=== PATIENT | female | born 1970 | race Caucasian/White ===

== ENCOUNTER 2021-03-20 02:26 | Emergency (ER) | payer MEDICAID ==
[~2021-03-20] VITALS: Ht 154.9 cm; Wt 108.9 kg
[2021-03-20 02:35] VITALS: BP_SYST 129
[2021-03-20] MEDS ORDERED: IBUPROFEN 600 MG TABLET PO ONE (03:15)
[2021-03-20] MEDS ORDERED: IBUPROFEN 600 MG TABLET ONE (03:29)
[2021-03-20] MEDS ORDERED: NAPR-686 PO (04:23)
[2021-03-20 04:28] VITALS: BP_SYST 126
== END 2021-03-20 04:28 | disposition home or self-care (01) ==
LOC: SED 02:26
DX: M19.071 Primary osteoarthritis, right ankle and foot (principal); E11.9 Type 2 diabetes mellitus without complications
CPT/HCPCS: 82962; 99283